=== PATIENT | female | born 1990 | race Two or more races ===

== ENCOUNTER 2020-06-06 09:51 | Outpatient (REF) | payer MEDICAID, SELFPAY ==
[2020-06-06 11:59] LABS: Red Cell Distribution Width 12.8 % (11.0-16.0)
[2020-06-06 12:00] LABS: Hematocrit 33.6 % (37-47); Hemoglobin 10.4 g/dl (12.0-16.0); Mean Corpuscular Hemoglobin 27.7 pg (27.0-33.0); Mean Corpuscular Volume 89.4 fL (80-98); Red Blood Count 3.76 X10*6/uL (4.20-5.50)
[2020-06-06 12:04] LABS: PLT ABN DIST 1; WBC ABN SCTR FOR CBC 1
[2020-06-06 12:28] LABS: Alanine Aminotransferase 19 U/L (0-31); Albumin Level 3.6 g/dL (3.5-5.0); Alkaline Phosphatase 95 U/L (39-117); Anion Gap 12 (12-20); Aspartate Amino Transferase 19 U/L (5-31); Bilirubin Total 0.4 mg/dL (0.0-1.0); Blood Urea Nitrogen 6 mg/dL (9-16); Calcium 8.4 mg/dL (8.4-10.2); Carbon Dioxide 23 mmol/L (22-29); Chloride 104 mmol/L (96-108); Estimated Glomerular Filt Rate > 60; Glucose Random 70 mg/dL (60-115); Potassium 4.1 mmol/l (3.3-5.1); Sodium 135 mmol/L (135-145); Total Protein 6.3 g/dL (6.5-8.0); Uric Acid 3.2 mg/dL (2.4-5.7)
[2020-06-06 12:48] LABS: Syphilis Screen Nonreactive (Nonreactive)
[2020-06-06 12:49] LABS: Platelet Count 136 X10*3/uL (160-400); White Blood Count 9.8 X10*3/uL (4.8-10.8)
[2020-06-06 12:51] LABS: Band Neutrophils Percent 4 % (3-5); Eosinophils Absolute Manual 0.1 X10*3/UL (0.0-0.8); Eosinophils Percent Manual 1 % (0-4); Lymphocytes Absolute Manual 2.6 X10*3/uL (0.6-4.8); Lymphocytes Percent Manual 27 % (20-40); Monocytes Absolute Manual 0.2 X10*3/uL (0.0-1.2); Monocytes Percent Manual 2 % (2-11); Neutrophils Absolute Manual 6.9 X10*3/uL (2.2-7.9); Neutrophils Percent Manual 66 % (45-73)
[2020-06-06 12:52] LABS: RBC Morphology NORMAL
[2020-06-06 12:53] LABS: Large Platelet PRESENT; Platelet Estimate SLIGHTLY DECREASED (NORMAL); Platelet Morphology Comment NOTED
[2020-06-06 13:57] LABS: Amphetamine Screen Urine Not Detected (Not Detect); Barbiturates, Urine Not Detected (Not Detect); Benzodiazepines Screen Urine Not Detected (Not Detect); Cannabinoid Screen Urine Not Detected (Not Detect); Cocaine Screen Urine Not Detected (Not Detect); Opiate Screen Urine Not Detected (Not Detect); Phencyclidine Screen Urine Not Detected (Not Detect)
[2020-06-06 14:28] LABS: Protein/Creatinine Ratio, Ur 0.07 (<0.2); Total Protein Urine Random 10 mg/dL (<12)
[2020-06-08 01:52] LABS: Rubella IgG Antibody 2.58 Index
[2020-06-09 04:07] LABS: HIV AB/AG Nonreactive (Nonreactive); HIV Num 1 0.13 S/CO (0.00-0.99); ~HepC Num1 0.05 S/CO (0.00-0.79); ~Hepatitis C Antibody Nonreactive (Nonreactive)
[2020-06-09 04:21] LABS: HBsAGNum1 0.19 S/CO (0.00-0.99); Hepatitis B Surface Antigen Negative (Negative)
== END 2020-06-06 09:52 | disposition home or self-care (01) ==
LOC: HO.LAB 09:51
PROVIDERS: Visit Provider Advanced Practice Midwife
DX: Z34.90 Encounter for supervision of normal pregnancy, unspecified, unspecified trimester (principal)
CPT/HCPCS: 80053; 80307; 81025; 84156; 84550; 85007; 85025; 85027; 86762; 86780; 86787; 86803; 86850; 86900; 86901; 87086; 87340; 87389; 99212

== ENCOUNTER 2020-06-13 10:34 | Outpatient (REF) | payer MEDICAID, SELFPAY ==
--- NOTE | 2020-06-13 10:39 | US_ITS ---
EXAMINATION: US OBSTETRICAL CLINICAL INFORMATION: 29-year-old at 24.3 weeks of gestation Insufficient care Suspected anomaly Size date discrepancy COMPARISON: None TECHNIQUE: Real-time transabdominal ultrasound was performed using C1-5 megahertz transducer. FINDINGS: A single, active, fetus is seen in transverse presentation. The placenta is posterior without previa, and the amniotic fluid volume is wnl. MEASUREMENTS: 1. Biparietal Diameter: 7.4 cm; 29.6 wks 2. Occipital Frontal Diameter: 9.5 cm 3. Head Circumference: 28.3 cm; 31.0 wks 4. Abdominal Circumference: 24.8 cm; 29.1 wks 5. Femur Length: 5.52 cm; 29.1 wks 6. Humerus Length: 5.2 cm; 30.1 wks 7. Tibia Length: 4.8 cm; 29.0 wks 8. Ulna Length: 5.0 cm; 31.3 wks 9. Lateral ventricle: 0.6 cm 10. Cerebellum: 3.5 cm; 31.5 wks 11. Cisterna Magna: 0.8 cm 12. Nuchal Fold: N/A mm 13. Heart Rate: 150 beats per minute Rt ovary: Unable to visualize Lt ovary: Unable to visualize Cervical length 4.4 cm on T/A. GESTATIONAL AGE: 1. Established GA: 24.3 wks 2. GA from [facility]: 29.6 wks ESTIMATED DATE OF DELIVERY: 1. Established BEA: 09/30/2020 2. BEA from [facility]: 08/23/2020 ANATOMY: Limited views of the profile, nasal bone due to position. The visualized anatomy includes but not limited to: 1. Cranium: Normal 2. Intracranial anatomy: cavum septum pellucidi, lateral ventricles, choroid plexus, cerebellum, posterior fossa, third and fourth ventricles. 3. face: Suboptimal 4. Heart: four-chamber view of the heart, ventricular septum, foramen ovale, pulmonary vein, left and right outflow tracts, three-vessel view, 3 vessel trachea view, aortic and ductal arches, situs.. 5. Diaphragm: Normal 6. Abdominal wall: Normal 7. Cord Insertion: Normal 8. Spine: Cervical, thoracic, lumbar, sacral. 9. Stomach: Normal size and shape 10. Right Kidney: Normal 11. Left Kidney: Normal 12. 3 vessel cord: Normal 13. Upper extremity: Open hands, fifth digit. 14. Lower extremity: Tibia, fibula, bilateral feet. 15. Bladder: Normal 16. Genitalia: Male, patient aware US/US OB /maternal detail IMPRESSION: 1. Single, living, intrauterine with appropriate biometry. 2. Normal survey DISCUSSION: There is one month the discrepancy between the biometry and her stated gestational age. Patient reports that her LMP is irregular and she is uncertain of the exact date. I recommended that that we adjust her BEA to 08/23/2020 based on today's examination. I reviewed today's ultrasound findings. We discussed the limitations of ultrasound in diagnosing aneuploidy and other congenital abnormalities. I reviewed the differences between screening test and diagnostic test. She is not interested and serum aneuploidy screening. She was informed that the baseline incidence of congenital abnormalities is approximately 3-5%. Not all these conditions are diagnosable in utero. RECOMMENDATIONS: 1. She is to follow-up in 3 weeks for anatomy and growth (scheduled). Thank you for allowing me to participate in her care. Visiting time 20 minutes. (0,15,5)
[2020-06-14 12:26] LABS: BV Int Neg Control Negative (Negative); BV Int Pos Control Positive (Positive)
[2020-06-14 15:37] LABS: C. trachomatis RNA TMA NOT DETECTED (NOT DETECTED); N. gonorrhoeae RNA TMA NOT DETECTED (NOT DETECTED)
== END 2020-06-13 10:35 | disposition home or self-care (01) ==
LOC: HO.US 10:34
PROVIDERS: Visit Provider Advanced Practice Midwife
DX: O35.9XX0 Maternal care for (suspected) fetal abnormality and damage, unspecified, not applicable or unspecified (principal); O09.32 Supervision of pregnancy with insufficient antenatal care, second trimester; O26.842 Uterine size-date discrepancy, second trimester; O34.219 Maternal care for unspecified type scar from previous cesarean delivery; Z3A.24 24 weeks gestation of pregnancy
CPT/HCPCS: 76811; 81003; 87480; 87491; 87510; 87591; 87660; 99212

== ENCOUNTER 2020-06-13 11:18 | Outpatient (REF) | payer MEDICAID, SELFPAY | END 2020-06-13 11:19 | disposition home or self-care (01) | LOC: HO.LAB 11:18 | PROVIDERS: Visit Provider Advanced Practice Midwife | DX: Z13.89 Encounter for screening for other disorder (principal) ==

== ENCOUNTER 2020-06-23 09:57 | Outpatient (REF) | payer MEDICAID, SELFPAY ==
[2020-06-23 12:21] LABS: Hematocrit 31.9 % (37-47); Hemoglobin 9.9 g/dl (12.0-16.0); Mean Corpuscular Volume 90.4 fL (80-98); Platelet Count 134 X10*3/uL (160-400); Red Blood Count 3.53 X10*6/uL (4.20-5.50); Red Cell Distribution Width 13.5 % (11.0-16.0); WBC ABN SCTR FOR CBC 1
[2020-06-23 12:22] LABS: Alanine Aminotransferase 21 U/L (0-31); Aspartate Amino Transferase 16 U/L (5-31); Blood Urea Nitrogen 7 mg/dL (9-16); Estimated Glomerular Filt Rate > 60
[2020-06-23 12:24] LABS: Glucose 1 Hour PP 50gm Dose 92 mg/dL (60-140)
[2020-06-23 13:50] LABS: White Blood Count 9.7 X10*3/uL (4.8-10.8)
[2020-06-23 13:53] LABS: Band Neutrophils Percent 1 % (3-5); Basophils Abs Manual 0.1 X10*3/uL (0.0-0.3); Basophils Percent Manual 1 % (0-1); Eosinophils Absolute Manual 0.2 X10*3/UL (0.0-0.8); Eosinophils Percent Manual 2 % (0-4); Lymphocytes Absolute Manual 2.6 X10*3/uL (0.6-4.8); Lymphocytes Percent Manual 27 % (20-40); Monocytes Absolute Manual 0.4 X10*3/uL (0.0-1.2); Monocytes Percent Manual 4 % (2-11); Neutrophils Absolute Manual 6.4 X10*3/uL (2.2-7.9); Neutrophils Percent Manual 65 % (45-73); RBC Morphology NORMAL
[2020-06-23 13:54] LABS: Large Platelet PRESENT; Platelet Estimate SLIGHTLY DECREASED (NORMAL); Platelet Morphology Comment NOTED
[2020-06-24 18:37] LABS: C. trachomatis RNA TMA NOT DETECTED (NOT DETECTED); N. gonorrhoeae RNA TMA NOT DETECTED (NOT DETECTED)
== END 2020-06-23 09:58 | disposition home or self-care (01) ==
LOC: HO.LAB 09:57
PROVIDERS: Visit Provider Advanced Practice Midwife
DX: Z34.90 Encounter for supervision of normal pregnancy, unspecified, unspecified trimester (principal)
CPT/HCPCS: 36415; 82565; 84450; 84460; 84520; 85007; 85025; 85027; 87491; 87591

== ENCOUNTER 2020-07-04 09:31 | Outpatient (REF) | payer MEDICAID, SELFPAY ==
--- NOTE | ~2020-07-04 | US_ITS ---
EXAMINATION: OBSTETRICAL ULTRASOUND, Follow up HISTORY: 29-year-old at 32.6 weeks of gestation Insufficient care with uncertain dating Follow-up anatomy Size date discrepancy COMPARISON: 06/13/2020 TECHNIQUE: Real time transabdominal imaging with color and M-mode Doppler. PRESENTATION: Vertex PLACENTA LOCATION: Posterior without previa AMNIOTIC FLUID: DVP 4.7 cm MEASUREMENTS: 1. Biparietal Diameter: 7.9 cm; 31.5 wks 2. Head Circumference: 30.3 cm; 33.5 wks 3. Abdominal Circumference: 27.2 cm; 31.3 wks 4. Femur Length: 6.1 cm; 31.5 wks 5. Heart Rate: 132 beats per minute WEIGHT: EFW: 1808 grams (4 lbs 0 oz) -- 12 %. profile, nasal bone, nose lips, posterior fossa, lateral ventricles, four-chamber view of the heart, stomach, urinary bladder and kidneys are within normal limits. BIOPHYSICAL PROFILE: Motion: 2 Tone: 2 Breathin Amniotic Fluid: 2 Total score: 8/8 Doppler: UA S/D 2.1 GESTATIONAL AGE: 1. Established GA: 32.6 wks 2. GA from [facility]: 32.1 wks ESTIMATED DATE OF DELIVERY: 1. Established BEA: 08/23/2020 2. BEA from [facility]: 08/28/2020 US/US OB follow up IMPRESSION: 1. A single active fetus is in vertex presentation. 2. Size equals dates. EFW corresponds to 12th percentile. Her BEA of 08/23/2020 is based on third trimester ultrasound performed on 06/13/2020. 3. Reassuring biophysical profile and umbilical Doppler SD ratio 4. Normal profile, nasal bone, lips. We discussed the significance of EFW of 12 percentile. Because her BEA is based on third trimester ultrasound, the exact gestational age is unknown. I reviewed the limitations of ultrasound and estimating weights. In general, EFW corresponding to greater than 10th percentile are considered appropriate for gestational age. In addition, there is no evidence of placental insufficiency and today's examination. A repeat the growth evaluation is been scheduled in 2 weeks. Thank you very much for this referral. Visiting time 30 minutes. Majority of this visit was spent reviewing and coordinating her care.
--- NOTE | ~2020-07-04 | US_ITS ---
EXAMINATION: OBSTETRICAL ULTRASOUND, Follow up HISTORY: 29-year-old at 32.6 weeks of gestation Insufficient care with uncertain dating Follow-up anatomy Size date discrepancy COMPARISON: 06/13/2020 TECHNIQUE: Real time transabdominal imaging with color and M-mode Doppler. PRESENTATION: Vertex PLACENTA LOCATION: Posterior without previa AMNIOTIC FLUID: DVP 4.7 cm MEASUREMENTS: 1. Biparietal Diameter: 7.9 cm; 31.5 wks 2. Head Circumference: 30.3 cm; 33.5 wks 3. Abdominal Circumference: 27.2 cm; 31.3 wks 4. Femur Length: 6.1 cm; 31.5 wks 5. Heart Rate: 132 beats per minute WEIGHT: EFW: 1808 grams (4 lbs 0 oz) -- 12 %. profile, nasal bone, nose lips, posterior fossa, lateral ventricles, four-chamber view of the heart, stomach, urinary bladder and kidneys are within normal limits. BIOPHYSICAL PROFILE: Motion: 2 Tone: 2 Breathin Amniotic Fluid: 2 Total score: 8/8 Doppler: UA S/D 2.1 GESTATIONAL AGE: 1. Established GA: 32.6 wks 2. GA from [facility]: 32.1 wks ESTIMATED DATE OF DELIVERY: 1. Established BEA: 08/23/2020 2. BEA from [facility]: 08/28/2020 US/US OB velocimetry umbilcal art IMPRESSION: 1. A single active fetus is in vertex presentation. 2. Size equals dates. EFW corresponds to 12th percentile. Her BEA of 08/23/2020 is based on third trimester ultrasound performed on 06/13/2020. 3. Reassuring biophysical profile and umbilical Doppler SD ratio 4. Normal profile, nasal bone, lips. We discussed the significance of EFW of 12 percentile. Because her BEA is based on third trimester ultrasound, the exact gestational age is unknown. I reviewed the limitations of ultrasound and estimating weights. In general, EFW corresponding to greater than 10th percentile are considered appropriate for gestational age. In addition, there is no evidence of placental insufficiency and today's examination. A repeat the growth evaluation is been scheduled in 2 weeks. Thank you very much for this referral. Visiting time 30 minutes. Majority of this visit was spent reviewing and coordinating her care.
== END 2020-07-04 09:32 | disposition home or self-care (01) ==
LOC: HO.US 09:31
PROVIDERS: Visit Provider Advanced Practice Midwife
DX: O09.33 Supervision of pregnancy with insufficient antenatal care, third trimester (principal); O26.843 Uterine size-date discrepancy, third trimester; O35.9XX0 Maternal care for (suspected) fetal abnormality and damage, unspecified, not applicable or unspecified; O99.013 Anemia complicating pregnancy, third trimester; O34.219 Maternal care for unspecified type scar from previous cesarean delivery; Z3A.32 32 weeks gestation of pregnancy
CPT/HCPCS: 76816; 76819; 76820

== ENCOUNTER 2020-07-18 09:12 | Outpatient (REF) | payer MEDICAID, SELFPAY ==
--- NOTE | ~2020-07-18 | US_ITS ---
EXAMINATION: OBSTETRICAL ULTRASOUND, Follow up HISTORY: 29-year-old at the 34.6 weeks Size date discrepancy COMPARISON: 07/04/2020 TECHNIQUE: Real time transabdominal imaging with color and M-mode Doppler. PRESENTATION: Vertex PLACENTA LOCATION: Posterior without previa AMNIOTIC FLUID: GENNARO 13.4 cm MEASUREMENTS: 1. Biparietal Diameter: 8.5 cm; 34.3 wks 2. Head Circumference: 31.8 cm; 35.6 wks 3. Abdominal Circumference: 31.3 cm; 35.2 wks 4. Femur Length: 6.6 cm; 34.2 wks 5. Heart Rate: 136 beats per minute WEIGHT: EFW: 2553 grams (5 lbs 10 oz) -- 49 %. BIOPHYSICAL PROFILE: Motion: 2 Tone: 2 Breathin Amniotic Fluid: 2 Total score: 8/8 GESTATIONAL AGE: 1. Established GA: 34.6 wks 2. GA from [facility]: 35.0 wks ESTIMATED DATE OF DELIVERY: 1. Established BEA: 08/23/2020 2. BEA from [facility]: 08/22/2020 US/US OB follow up IMPRESSION: 1. A single active fetus in vertex presentation 2. Size equals dates, compared to prior exam, there has been an appropriate interval growth 3. Reassuring biophysical profile with normal amniotic fluid index. Thank you very much for this referral.
== END 2020-07-18 09:13 | disposition home or self-care (01) ==
LOC: HO.US 09:12
PROVIDERS: Visit Provider Advanced Practice Midwife
DX: O34.219 Maternal care for unspecified type scar from previous cesarean delivery (principal); O09.33 Supervision of pregnancy with insufficient antenatal care, third trimester; O26.843 Uterine size-date discrepancy, third trimester; O99.013 Anemia complicating pregnancy, third trimester; D64.9 Anemia, unspecified; Z3A.34 34 weeks gestation of pregnancy
CPT/HCPCS: 76816; 81003; 99212

== ENCOUNTER 2020-08-01 09:35 | Outpatient (REF) | payer MEDICAID, SELFPAY ==
[2020-08-02 09:47] LABS: C. trachomatis RNA TMA NOT DETECTED (NOT DETECTED); N. gonorrhoeae RNA TMA NOT DETECTED (NOT DETECTED)
== END 2020-08-01 09:36 | disposition home or self-care (01) ==
LOC: HO.LAB 09:35
PROVIDERS: Visit Provider Advanced Practice Midwife
DX: O34.219 Maternal care for unspecified type scar from previous cesarean delivery (principal); O99.013 Anemia complicating pregnancy, third trimester; D64.9 Anemia, unspecified; Z3A.36 36 weeks gestation of pregnancy
CPT/HCPCS: 36415; 81003; 87081; 87491; 87591; 99212

== ENCOUNTER → 2020-08-04 14:25 | Outpatient (BNVA) | payer MEDICAID, SELFPAY | PROVIDERS: Visit Provider Obstetrics & Gynecology | DX: Z34.90 Encounter for supervision of normal pregnancy, unspecified, unspecified trimester (principal); Z3A.37 37 weeks gestation of pregnancy | CPT/HCPCS: 99212 ==

== ENCOUNTER → 2020-08-12 14:41 | Outpatient (BNVA) | payer MEDICAID, SELFPAY | PROVIDERS: Visit Provider Obstetrics & Gynecology | DX: O34.219 Maternal care for unspecified type scar from previous cesarean delivery (principal); Z3A.38 38 weeks gestation of pregnancy | CPT/HCPCS: 99212 ==

== ENCOUNTER → 2024-01-26 11:35 | Outpatient (RCR) | payer MEDICAID, SELFPAY ==
[2020-08-08 13:37] VITALS: BP 116/65; PULSE 86; RESP 12; TEMP 36.9; O2SAT 98; BMI 35.3
--- NOTE | 2020-08-08 14:09 | P.CNHO_ITS ---
Subjective - Subjective Chief complaint: Consult for anemia in the 3rd trimester of . Patient: new to practice Consult date: 08/08/20 Requesting Physician: Michela. Medical Summary: DIAGNOSIS: ANEMIA IN THE 3RD TRIMESTER OF . HPI - Consult Narrative Reason for consult: Consult for anemia. Narrative: Debby Crockett is a pleasant 30 year old lady, who is at the 3rd trimester of her 3rd . She had a CBC back on June 23, which revealed: WBC 9.7, HGB 9.9, HCT 31.9, MCV 90.4, PLT 134. On June 06 hemoglobin: 10.4. She tells me she was not anemic with her other 2 children 9 and 8-year-old. She does not tolerate oral iron too well on account of GI side effects. She has received blood transfusion in the past. ROS: She does feel rather fatigued, more so than usual. Denies fever nor chills. Appetite is fair. She has gained weight. Denies headache no dizziness. No chest pain or trouble breathing. She has occasional heartburn no abdominal pain nausea vomiting. Bowels are working without any gross blood in it. Denies dysuria or hematuria. Denies any joint pains muscle pain. Denies depression. No rashes not pruritus. Review of Systems - Constitutional Reports system reviewed and no additional complaints, except as documented, Reports lack of energy - Eyes Reports system reviewed and no additional complaints, except as documented, Denies blurry vision - ENT Reports system reviewed and no additional complaints, except as documented - Cardiovascular Reports system reviewed and no additional complaints, except as documented, D enies chest pain at rest - Respiratory Reports no additional respiratory complaints - Gastrointestinal Reports system reviewed and no additional complaints, except as documented, Denies abdominal pain, Denies bloating - Genitourinary Reports no additional female genitourinary complaints, Denies abnormal vaginal bleeding - Musculoskeletal Reports system reviewed and no additional complaints, except as documented, Denies back pain - Integumentary/Breasts Skin/Breast: Reports no additional skin complaints, Denies breast lump - Neurologic Reports system reviewed and no additional complaints, except as documented - Psychiatric Reports system reviewed and no additional complaints, except as documented, Denies anxiety - Endocrine Reports no additional endocrine complaints - Hematologic/Lymphatic Reports system reviewed and no additional complaints, except as documented, Denies easy bleeding - Allergic/Immunologic Reports system reviewed and no additional complaints, except as documented, Denies GI upset with certain foods PMFSH Medical History: Medical History (Last Reviewed 08/04/20 @ 14:40 by Dg Abernathy MD) Anemia Functional capacity: independent ambulation Patient : Yes Family History: Family History (Last Reviewed 08/04/20 @ 14:40 by Dg Abernathy MD) Maternal Grandmother Diabetes mellitus HTN (hypertension) Maternal Grandfather Diabetes mellitus HTN (hypertension) Mother No problems noted. Father No problems noted. Surgical History: Surgical History (Last Reviewed 08/04/20 @ 14:40 by Dg Abernathy MD) History of 2 sections Social History: Social History (Last Reviewed 08/04/20 @ 14:40 by Dg Abernathy MD) Alcohol History: Alcohol intake: never Sex/Gender Assessment: Gender identity: female Home Medications and Allergies Home Medications Medication Instructions Recorded Confirmed Type vitamin with calcium 1 tab PO DAILY 06/06/20 08/08/20 History no.72-iron 27 mg-folic acid 1 mg tablet Allergies Allergy/AdvReac Type Severity Reaction Status Date / Time No Known Allergies Allergy Verified 08/04/20 14:37 Physical Exam Vital signs: Vital Signs Temp 98.4 F 08/08/20 13:37 Pulse 86 08/08/20 13:37 Resp 12 08/08/20 13:37 BP 116/65 08/08/20 13:37 Pulse Ox 98 08/08/20 13:37 Intake & Output 08/07/20 08/08/20 08/08/20 18:59 06:59 18:59 Other: Weight 99.2 kg Weight in Grams 07262 Weight 99.2 kg - Constitutional Present: no acute distress - Routine HEENT Exam Head: Present: normal inspection Eye: Present: conjunctivae pink ENT: Present: mucous membranes moist - Routine Neck Exam Present: supple - Routine Respiratory Exam Present: CTAB - Routine Cardiovascular Exam Cardiovascular: Present: RRR, S1, S2 - Routine Abdominal Exam Present: soft, nontender - Routine Rectal Exam Patient deferred: digital exam - Routine Extremities Exam Present: nontender Hem/Onc Consult Result - Labs CBC & Chem 7: 08/08/20 14:35 08/08/20 14:35 Assessment and Plan (1) Anemia affecting in third trimester Status: Acute This is a pleasant 30-year-old lady who is in the 3rd trimester of her 3rd . She has felt more fatigued lately. Her hemoglobin on June 21 was 9.9. Rest of the CBC was normal. Most likely she has related Iron Deficiency Anemia. She tells me she has tried oral iron in the past but that does not work for her. PLAN: I will proceed with further evaluation. I will repeat her blood count today: Hgb 9.9. Check iron studies and a ferritin: 53/546/10/4. Checked for celiac disease. Since oral iron proves to be ineffective for her, I will give her IV iron. In the interest of time will use Injectofer 750 mg weekly x2 doses. She tells me she was told that her expected date is 08/18, however she thinks that is too early. She will return in a couple of months for a follow-up visit. Thank you, CC: Dr. Dg Abernathy.
[2020-08-08 14:51] LABS: Hemoglobin 9.9 g/dl (12.0-16.0)
[2020-08-08 14:53] LABS: Hematocrit 30.9 % (37-47); Mean Corpuscular Hemoglobin 27.7 pg (27.0-33.0); Mean Corpuscular Volume 86.6 fL (80-98); Red Blood Count 3.57 X10*6/uL (4.20-5.50); Red Cell Distribution Width 13.8 % (11.0-16.0)
[2020-08-08 14:57] LABS: PLT ABN DIST 1; WBC ABN SCTR FOR CBC 1
[2020-08-08 15:15] LABS: Alanine Aminotransferase 52 U/L (0-31); Albumin Level 3.3 g/dL (3.5-5.0); Alkaline Phosphatase 190 U/L (39-117); Anion Gap 13 (12-20); Aspartate Amino Transferase 31 U/L (5-31); Bilirubin Total 0.4 mg/dL (0.0-1.0); Blood Urea Nitrogen 7 mg/dL (9-16); Calcium 8.6 mg/dL (8.4-10.2); Carbon Dioxide 22 mmol/L (22-29); Chloride 106 mmol/L (96-108); Creatinine Clr Calc Pharmacy 161.3; Estimated Glomerular Filt Rate > 60; Glucose Random 105 mg/dL (60-115); Iron 53 mcg/dL (30-160); Percent Iron Saturation 10 % (15-50); Potassium 3.8 mmol/L (3.3-5.1); Sodium 137 mmol/L (135-145); Total Iron Binding Capacity 546 mcg/dL (228-428); Total Protein 5.9 g/dL (6.5-8.0); Unsaturated Iron Binding 493 ug/dL
[2020-08-08 15:36] LABS: Ferritin 4 ng/mL (10-122)
[2020-08-08 15:54] LABS: Atypical Lymphs Percent Manual 2 % (0-6); Band Neutrophils Percent 2 % (3-5); Basophils Percent Manual 1 % (0-1); Eosinophils Percent Manual 3 % (0-4); Lymphocytes Percent Manual 22 % (20-40); Monocytes Percent Manual 5 % (2-11); Neutrophils Percent Manual 65 % (45-73)
[2020-08-08 15:55] LABS: Giant Platelet PRESENT; Large Platelet PRESENT; Platelet Estimate NORMAL (NORMAL); RBC Morphology NORMAL
[2020-08-08 15:56] LABS: Platelet Morphology Comment NOTED
[2020-08-08 15:59] LABS: Atypical Lymph Absolute Manual 0.2 x10*3/uL; Basophils Abs Manual 0.1 X10*3/uL (0.0-0.3); Eosinophils Absolute Manual 0.3 X10*3/UL (0.0-0.8); Monocytes Absolute Manual 0.4 X10*3/uL (0.0-1.2); Platelet Count 116 X10*3/uL (160-400); White Blood Count 8.9 X10*3/uL (4.8-10.8)
--- NOTE | 2020-08-08 16:11 | MHC.HEMONCMA ---
Pt presents for consult for anemia compliacating . History reviewed, labs drawn and pt to return in 2 months. Pt is scheduled for iron infusion on 08/14/20 @ 12pm. Pt notified.
[2020-08-11 13:01] LABS: Transglutaminase IgA 1 U/mL
--- NOTE | 2020-08-15 08:00 | MHC.HEMONC ---
pT CALLED BECAUSE SHE WAS A NO SHOW YESTERDAY FOR INJECTOFER. I called and she is in [place] and staying and will be treated there.
== END | disposition home or self-care (01) ==
LOC: HO.ONC 08-08 13:30
PROVIDERS: Visit Provider Internal Medicine Medical Oncology
DX: O99.013 Anemia complicating pregnancy, third trimester (principal); D64.9 Anemia, unspecified; Z3A.00 Weeks of gestation of pregnancy not specified
CPT/HCPCS: 36415; 80053; 82728; 83516; 83540; 85007; 85027; 99204